=== PATIENT | female | born 1960 | race Two or more races ===

== ENCOUNTER 2020-06-29 07:24 | Outpatient (CLI) | payer OTHER | END 2020-06-29 23:59 | disposition home or self-care (01) | DX: Z01.812 Encounter for preprocedural laboratory examination (principal); Z20.828 Contact with and (suspected) exposure to other viral communicable diseases | CPT/HCPCS: 87426; C9803 ×2; U0003 ==

== ENCOUNTER 2020-07-04 08:05 | Inpatient (IN) | payer OTHER ==
[~2020-07-04] VITALS: Ht 154.9 cm; Wt 77.1 kg
--- NOTE | 2020-07-04 08:10 | NUR ---
MS DAY SURGERY ADMISSION NOTES ADMITTED PT FROM DAY SX FOR LT TOTAL KNEE ARTHROPLASTY BY DR QUAN.PT IS ALERT AND ORIENTED X4. RESPIRATIONS NON LABORED ON ROOM AIR.WITH BRP. ON NPO SINCE 10 PM LAST NIGHT FOR PENDING SX. ALL CONSENTS HAS BEEN SIGNED AND CHECKLIST COMPLETED. PT DENIES ANY PAIN OR DISTRESS AT THIS TIME.ORIENTATION GIVEN ON THE USE OF CALL LIGHT AND HER ROOM. CALL LIGHT PLACED WITHIN REACH.
[2020-07-04] MEDS ORDERED: IBUP-1955 PO (09:06)
[2020-07-04 09:09] VITALS: BP 164/75
[2020-07-04 10:00] VITALS: BP 164/75
--- NOTE | 2020-07-04 10:56 | NUR ---
PT BROUGHT TO O.R. FOR LT TOTAL KNEE ARTHROPLASTY.WITH STABLE V/S.
[2020-07-04] MEDS ORDERED: ONDANSETRON HCL/PF 4 MG/2 ML VIAL IV PRN (11:00)
[2020-07-04] MEDS ORDERED: TRANEXAMIC ACID 3,000 MG in SODIUM CHLORIDE IRRIG SOLUTION 70 ML IR ONE (11:30)
[2020-07-04] MEDS ORDERED: BACITRACIN 50000 UNITS/VIAL ONE (11:31)
[2020-07-04] MEDS ORDERED: HYDROMORPHONE INJ 2 MG/ML DISP.SYRIN ONE (12:11)
[2020-07-04] MEDS ORDERED: KETOROLAC TROMETHAMINE INJ 30 MG/ML VIAL ONE (12:11)
[2020-07-04] MEDS ORDERED: SEVOFLURANE 250 ML BOTTLE IH ONE (12:52)
[2020-07-04] MEDS ORDERED: HYDROMORPHONE 1 MG/1 ML DISP.SYRIN IV PRN (14:30)
--- NOTE | 2020-07-04 14:30 | NUR ---
PT CAME BACK FROM O.R. S/P LT TOTAL KNEE REPLACEMENT BY DR QUAN.PT DENIES PAIN AT HIS TIME AND WAS SLEEPY. DR LAWS IS HERE TO SEE THE PT FOR PAIN MGT CONSULT.CALL LIGHT PLACED WITHIN REACH. BP 152/81 HR 98 RR 18 T 97.6 PA 0/10. WILL MONITOR.
[2020-07-04] MEDS ORDERED: DOCUSATE SODIUM 250 MG CAPSULE PO PRN (15:00)
[2020-07-04] MEDS ORDERED: HYDROCODONE/APAP 5/325MG TABLET PO PRN (15:00)
[2020-07-04] MEDS ORDERED: BISACODYL SUPP (10 MG) 10 MG/SUPP.RECT SUPP.RECT RC PRN (15:00)
[2020-07-04] MEDS ORDERED: ACETAMINOPHEN 325 MG TABLET PO PRN (15:00)
[2020-07-04] MEDS ORDERED: ONDANSETRON HCL/PF 4 MG/2 ML VIAL IVP PRN (15:00)
[2020-07-04] MEDS ORDERED: SENNOSIDES 8.6 MG TABLET PO PRN (15:00)
[2020-07-04] MEDS ORDERED: ZOLPIDEM TARTRATE 5 MG TABLET PO PRN (15:00)
[2020-07-04] MEDS: IV LR 1000 ML 1,000 ML IV PRN (15:24)
[2020-07-04] MEDS ORDERED: HYDROMORPHONE 1 MG/1 ML DISP.SYRIN IM/IV/SC ONE (15:56)
[2020-07-04 16:00] VITALS: BP 150/83
[2020-07-04] MEDS ORDERED: MENTHOL/CETYLPYRD (CEPACOL) 1 LOZ LOZENGE PO PRN (16:00)
[2020-07-04] MEDS ORDERED: diphenhydrAMINE HCL 25 MG CAPSULE PO PRN (16:00)
[2020-07-04] MEDS ORDERED: CLONIDINE HCL 0.1 MG TABLET PO PRN (16:00)
[2020-07-04] MEDS ORDERED: MAG HYDROX/AL HYDROX/SIMETH 30 ML UDC PO PRN (16:00)
[2020-07-04] MEDS ORDERED: MAGNESIUM HYDROXIDE 30 ML UDC PO PRN (16:00)
[2020-07-04] MEDS: DOCUSATE SODIUM 100 MG CAPSULE PO SCH (18:01)
[2020-07-04 19:00] VITALS: BP 144/81
--- NOTE | 2020-07-04 19:00 | NUR ---
PT RESTING IN BED DENYING ANY PAIN OR DISTRESS.EATING HER LATE DINNER.WITH ONGOING IVF OF LR RUNNIGN AT 100 ML/HR INFUSING WELL.CALL LIGHT PLACED WITHIN REACH.
--- NOTE | 2020-07-04 20:00 | NUR ---
MS/RN OPENING NOTE Patient awake in bed, A/O x4, weight bearing as tolerated. Breath sounds even, clear, unlabored. No SOB or acute distress. CRP <3 seconds. Pulses 2+, symmetrical. Sensation intact. Skin warm, pink, dry, appropriate for ethnicity. Left knee dressing dry and intact. IV site RFA 20g running LR @ 100 ml/hr, no infiltration. Abdomen round, soft, non tender. BS active. Patient void via BSC. Bed in low position, wheels locked, side rails up x2, call light within reach.
[2020-07-04] MEDS: FAMOTIDINE (20 MG) 20 MG TABLET PO SCH (20:41)
[2020-07-04] MEDS: oxyCODONE IR immediate release 5 MG PO PRN (20:41)
[2020-07-04] MEDS: ANCEF 1 GM/50 ML D5W IV SCH ×2 (21:24)
--- NOTE | 2020-07-04 21:38 | NUR ---
MS/RN NOTE Patient c/o pain level 10 in left knee, throbbing and aching. Administered PRN oxy IR as ordered. VSS. Will continue to monitor.
[2020-07-04 21:59] VITALS: BP 144/81
[2020-07-05] MEDS: oxyCODONE IR immediate release 5 MG PO PRN ×3 (00:29→13:43)
--- NOTE | 2020-07-05 00:38 | NUR ---
MS/RN NOTE Patient c/o pain level 9 in left knee, throbbing. Administered PRN oxy IR as ordered. VSS. will continue to monitor.
[2020-07-05] MEDS: ANCEF 1 GM/50 ML D5W IV SCH ×2 (04:02)
[2020-07-05] MEDS: IV LR 1000 ML 1,000 ML IV PRN (04:02)
--- NOTE | 2020-07-05 06:12 | NUR ---
MS/RN NOTE Patient c/o pain level 7 in left knee, throbbing. Administered PRN oxy IR as ordered. VSS. will continue to monitor.
--- NOTE | 2020-07-05 07:14 | NUR ---
MS/RN CLOSING NOTE Patient awake in bed, A/O x4, weight bearing as tolerated. Breath sounds even, clear, unlabored. No SOB or acute distress. Skin warm, pink, dry, appropriate for ethnicity. Left knee dressing dry and intact. IV site RFA 20g, no infiltration. Abdomen round, soft, non tender. Patient void via BSC. Bed in low position, wheels locked, side rails up x2, call light within reach.
[2020-07-05 07:19] LABS: BASOPHILS % (AUTO) 0.3 % (0.0-2.0); EOSINOPHILS % (AUTO) 0.2 % (0.0-6.0); HEMATOCRIT 38 % (33-45); HEMOGLOBIN 12.7 g/dL (11.5-14.8); LYMPHOCYTES # (AUTO) 1.7 /CMM (0.8-4.8); LYMPHOCYTES % (AUTO) 20.3 % (20.0-44.0); MEAN CORPUSCULAR HGB CONC 33 g/dl (31.0-36.0); MEAN CORPUSCULAR VOLUME 98 fL (82-100); MONOCYTES # (AUTO) 0.9 /CMM (0.1-1.30); MONOCYTES % (AUTO) 10.2 % (2.0-12.0); PLATELET COUNT (AUTO) 244 /CMM (150-450); RED BLOOD CELL COUNT(AUTO) 3.93 MIL/uL (4.0-5.2); WHITE BLOOD COUNT (AUTO) 8.6 K/uL (4.3-11.0)
[2020-07-05 07:26] LABS: CALCIUM, SERUM 8.3 mg/dL (8.5-10.1); CREATININE 0.6 mg/dL (0.6-1.3); MAGNESIUM 2.1 mg/dL (1.8-2.4); POTASSIUM 3.7 mmol/L (3.5-5.1)
--- NOTE | 2020-07-05 07:29 | NUR ---
MS RN OPENING NOTES BEDSIDE ENDORSEMENT DONE. PATIENT IS AWAKE AND VERBALLY RESPONSIVE, A/O X4, ABLE TO MAKE NEEDS KNOWN. BREATHING EVEN AND UNLABORED, TOLERATING ROOM AIR. NOT IN ACUTE DISTRESS. IS AT BEDSIDE, ENCOURAGED OF PATIENT WHEN AWAKE. S/P L KNEE ARTHROPLASTY, DRESSING DRY AND INTACT. NO COMPLAINT OF PAIN AT THIS TIME. IV SITE ON RFA G#20 INTACT AND PATENT. SAFETY PRECAUTIONS IN PLACE: BED LOCKED AND ON LOWEST POSITION, SR UP X2, CALL LIGHT W/IN REACH. WILL CONTINUE TO MONITOR.
[2020-07-05 08:00] VITALS: BP 128/85
[2020-07-05] MEDS: ASPIRIN 325 MG TABLET PO SCH ×2 (08:13→16:13)
[2020-07-05] MEDS: DOCUSATE SODIUM 100 MG CAPSULE PO SCH ×2 (08:14→16:13)
[2020-07-05] MEDS: FAMOTIDINE (20 MG) 20 MG TABLET PO SCH ×2 (08:14→21:33)
--- NOTE | 2020-07-05 10:41 | NUR ---
RN NOTES PATIENT WAS SEEN BY PT FOR EVAL AND TREATMENT. WBAT, ABLE TO AMBULATE W/ FWW W/ ASSISTANCE. CPM [employer] BY PT AND PLACED ON LLE AT 35 DEGREES, TOLERATED BY PATIENT. WILL CONTINUE TO MONITOR.
[2020-07-05] MEDS: AMLODIPINE BESYLATE 5 MG TABLET PO SCH (11:31)
[2020-07-05 16:00] VITALS: BP 160/84
[2020-07-05] MEDS: HYDROMORPHONE 1 MG/1 ML DISP.SYRIN IM/IV/SC PRN ×2 (17:40→23:12)
--- NOTE | 2020-07-05 18:55 | NUR ---
MS RN CLOSING NOTES PATIENT IS AWAKE AND VERBALLY RESPONSIVE, A/O X4, ABLE TO MAKE NEEDS KNOWN. BREATHING EVEN AND UNLABORED, TOLERATING ROOM AIR. NOT IN ACUTE DISTRESS. S/P L KNEE ARTHROPLASTY, DRESSING DRY AND INTACT. PAIN MEDS ADMINISTERED INDICATED, NO COMPLAINT OF PAIN AT THIS TIME. IV SITE ON RFA G#20 INTACT AND PATENT. SAFETY PRECAUTIONS IN PLACE: BED LOCKED AND ON LOWEST POSITION, SR UP X2, CALL LIGHT W/IN REACH. WILL ENDORSE TO GREEN BELT RN FOR SIDRA.
--- NOTE | 2020-07-05 19:30 | NUR ---
MS RN PT IN BED WATCHING TV A/O X 4 NO S/S OF DISTRESS, STABLE. SAFETY MEASURES IN PLACE WILL CONT TO MONITOR
[2020-07-05 20:00] VITALS: BP 148/83
[2020-07-05 20:43] VITALS: BP 148/83
[2020-07-06] MEDS: HYDROMORPHONE 1 MG/1 ML DISP.SYRIN IM/IV/SC PRN (05:43)
--- NOTE | 2020-07-06 06:25 | NUR ---
MONITORED PAIN & PT ACCORDINGLY, MAINTAINS WBAT S/P L TKA KNEE IMMOBILIZER AT ALL TIMES. ENCOURAGE PT TO USE INCENTIVE SPIROMETER WHILE AWAKE Q1HR. ALL NEEDS ATTENDED AND ANTICIPATED, PT KEPT CLEAN, DRY AND COMFORTABLE. STABLE. SAFETY MEASURES AT ALL TIMES. WILL ENDORSE POC.
--- NOTE | 2020-07-06 07:09 | NUR ---
MS RN OPENING NOTES BEDSIDE ENDORSEMENT DONE. PATIENT IS AWAKE AND VERBALLY RESPONSIVE, A/O X4, ABLE TO MAKE NEEDS KNOWN. BREATHING EVEN AND UNLABORED, TOLERATING ROOM AIR. NOT IN ACUTE DISTRESS. ENCOURAGED PATIENT TO USE IS WHEN AWAKE. DRESSING DRY AND INTACT ON LEFT KNEE. NO COMPLAINT OF PAIN AT THIS TIME. IV SITE ON RFA G#20 INTACT AND PATENT. SAFETY PRECAUTIONS IN PLACE: BED LOCKED AND ON LOWEST POSITION, SR UP X2, CALL LIGHT W/IN REACH. WILL CONTINUE TO MONITOR.
[2020-07-06 08:00] VITALS: BP 122/68
[2020-07-06] MEDS: ASPIRIN 325 MG TABLET PO SCH (08:57)
[2020-07-06 08:58] VITALS: BP 122/68
[2020-07-06] MEDS: AMLODIPINE BESYLATE 5 MG TABLET PO SCH (08:58)
[2020-07-06] MEDS: DOCUSATE SODIUM 100 MG CAPSULE PO SCH (08:58)
[2020-07-06] MEDS: FAMOTIDINE (20 MG) 20 MG TABLET PO SCH (08:59)
--- NOTE | 2020-07-06 11:19 | NUR ---
RN NOTES AKOSUA VALLES CHANGED DRESSING ON PT'S LEFT KNEE SURGICAL SITE. PHOTO WAS TAKEN AND FILED ON CHART. WILL CONTINUE TO MONITOR.
[2020-07-06] MEDS: oxyCODONE IR immediate release 5 MG PO PRN (12:09)
--- NOTE | 2020-07-06 16:21 | NUR ---
RN DISCHARGED NOTES PT CLEARED FOR DISCHARGED HOME. PT IS A/O X4. ABLE TO MAKE NEEDS KNOWN. ALL NEEDS AND CARE ATTENDED WELL. PT AWARE THAT SHE WILL CONTACT HER HOME HEALTH. ON ROOM AIR, BREATHING EVEN AND UNLABORED, NO ACUTE DISTRESS NOTED. V/S TAKEN, STABLE AND RECORDED. PHOTO OF LEFT KNEE TAKEN. IV ACCESS REMOVED, NO BLEEDING AT SITE NOTED AND DRY DRESSING APPLIED. NAME ARMBAND REMOVED. HEALTH TEACHINGS/DISCHARGED INSTRUCTIONS GIVEN TO PT AND SHE VERBALIZED UNDERSTANDING. PT LEFT UNIT VIA WHEELCHAIR AT 1605 ACCOMPANIED BY TOMEKA TUCKER. PT'S DAUGHTER JOSELYN IN THE LOBBY AND WILL TAKE PT'S HOME. MD AND CHARGE NURSE AWARE OF DISCHARGE.
== END 2020-07-06 16:00 | disposition home health service (06) | DRG 470 ==
LOC: DS 08:05 → MED 08:08
PROVIDERS: ADMIT Nurse Practitioner Acute Care; ATTEND Nurse Practitioner Acute Care
PROC: 0SRD0J9 Replacement of Left Knee Joint with Synthetic Substitute, Cemented, Open Approach (ICD-10-PCS; principal; 2020-07-04)
DX: M17.12 Unilateral primary osteoarthritis, left knee (principal); E66.9 Obesity, unspecified; Z68.32 Body mass index [BMI] 32.0-32.9, adult; Z90.49 Acquired absence of other specified parts of digestive tract; Z80.9 Family history of malignant neoplasm, unspecified; Z83.3 Family history of diabetes mellitus
CPT/HCPCS: 36415; 80048-TC; 83735-TC; 85025-TC; 87081-TC; 88305-TC; 88311-TC; 97110-TC; 97116-TC; 97530-TC; 97760-TC; A4217; C1713; C1776; G0378; J0690; J1100; J1170; J1885; J2405; J2704; J2765; J3490; J7030; J7060; J7120

== ENCOUNTER 2020-10-19 11:59 | Outpatient (CLI) | payer OTHER | END 2020-10-19 23:59 | disposition home or self-care (01) | LOC: LAB 11:59 | PROVIDERS: ATTEND Specialist | DX: Z20.822 Contact with and (suspected) exposure to COVID-19 (principal) | CPT/HCPCS: 87426; C9803 ×2; U0003 ==

== ENCOUNTER 2020-10-24 05:52 | Day surgery (SDC) | payer OTHER ==
[2020-10-24] MEDS ORDERED: MIDAZOLAM HCL 2 MG/2ML VIAL ONE (06:29)
[2020-10-24] MEDS ORDERED: FENTANYL PF 250MCG/5ML AMPUL ONE (06:29)
[2020-10-24] MEDS ORDERED: BUPIVACAINE 0.25% 75 MG/30 ML VIAL ONE (06:30)
[2020-10-24] MEDS ORDERED: FAMOTIDINE/PF INJ 20 MG/2 ML VIAL IV ONE (06:30)
[2020-10-24] MEDS ORDERED: ANESTHESIA TRAY IN PYXIS 1 EA TRAY MC ONE ×2 (06:33→06:42)
[2020-10-24] MEDS ORDERED: LIDOCAINE 1% INJ 50 ML MDV IJ ONE (06:48)
[2020-10-24] MEDS ORDERED: methylPREDNISolone ACETATE 80 MG/ML VIAL ONE (06:49)
[2020-10-24] MEDS ORDERED: HYDROCODONE/APAP 5/325MG TABLET ONE (09:19)
== END 2020-10-24 09:20 | disposition home or self-care (01) ==
LOC: DS 05:52
PROVIDERS: ATTEND Specialist
DX: M24.662 Ankylosis, left knee (principal); Z96.652 Presence of left artificial knee joint
CPT/HCPCS: 27570; J2250; J3010; J3490 ×3; J1040; J2405; J2704; J2765